=== PATIENT | female | born 1985 | race Caucasian/White ===

== ENCOUNTER 2018-01-10 15:42 | Inpatient (IN) | payer OTHER ==
[2018-01-10] MEDS ORDERED: CARBOPROST 250 MCG INJ IM (16:30)
[2018-01-10] MEDS ORDERED: OXYTOCIN 30 UNITS/LR 500 ML IV ×2 (16:30)
[2018-01-10] MEDS ORDERED: MISOPROSTOL 200 MCG TAB PR (16:30)
[2018-01-10] MEDS ORDERED: METHYLERGONOVINE 0.2 MG INJ IM (16:30)
[2018-01-10] MEDS ORDERED: LIDOCAINE 1% (MPF) 30 ML INJ INJ (16:30)
[2018-01-10] MEDS ORDERED: BUTORPHANOL 2 MG INJ IV (16:30)
[2018-01-10] MEDS ORDERED: IBUPROFEN 600 MG TAB PO (16:30)
[2018-01-10] MEDS: LACTATED RINGER'S 1,000 ML IV ×2 (19:21→23:39)
[2018-01-10] MEDS: URSODIOL 300 MG CAP PO (21:12)
[2018-01-11 00:51] LABS: ADD MAN DIFF? NO
[2018-01-11 00:53] LABS: WHITE BLOOD COUNT 6.5 10^3/ul (4.8-10.8)
[2018-01-11 00:53] LABS: BASOPHILS % 0.3 % (0.0-2.0); EOSINOPHILS # 0.1 10^3/ul (0.0-0.5); EOSINOPHILS % 1.5 % (0.0-7.0); HEMATOCRIT 29.7 % (37.0-47.0); HEMOGLOBIN 9.7 g/dl (12.0-16.0); LYMPHOCYTES # 1.6 10^3/ul (0.8-2.9); LYMPHOCYTES % 23.9 % (15.0-51.0); MEAN CORPUSCULAR HEMOGLOBIN 26.2 pg (29.0-33.0); MEAN CORPUSCULAR HGB CONC 32.7 g/dl (32.0-37.0); MEAN CORPUSCULAR VOLUME 80.3 fl (82.0-101.0); MEAN PLATELET VOLUME 11.8 fl (7.4-10.4); MONOCYTE # 0.5 10^3/ul (0.3-0.9); MONOCYTES % 6.9 % (0.0-11.0); NEUTROPHIL # 4.4 10^3/ul (1.6-7.5); NEUTROPHILS % 67.1 % (39.0-77.0); PLATELET COUNT 189 10^3/UL (140-415); RED CELL DISTRIBUTION WIDTH 13.7 % (11.5-14.5)
[2018-01-11 01:21] LABS: INR 0.92; PROTIME 12.4 Sec (11.9-14.9)
[2018-01-11 01:22] LABS: PARTIAL THROMBOPLASTIN TIME 27.5 Sec (25.0-35.0)
[2018-01-11 01:41] LABS: HEPATITIS B SURFACE ANTIGEN NEGATIVE (NEGATIVE)
[2018-01-11] MEDS ORDERED: CEFAZOLIN 2 GM/50 ML (PMX) 50 ML IV (04:00)
[2018-01-11] MEDS ORDERED: CARBOPROST 250 MCG INJ IM ×2 (04:00→08:30)
[2018-01-11] MEDS ORDERED: MISOPROSTOL 200 MCG TAB PR ×2 (04:00→08:30)
[2018-01-11] MEDS ORDERED: METHYLERGONOVINE 0.2 MG INJ IM (04:00)
[2018-01-11] MEDS ORDERED: OXYTOCIN 30 UNITS/LR 500 ML IV ×2 (04:00→08:30)
[2018-01-11] MEDS: LACTATED RINGER'S 1,000 ML IV ×3 (06:20→18:28)
[2018-01-11] MEDS ORDERED: HYDROCODONE/APAP (5/325) TAB PO (08:30)
[2018-01-11] MEDS ORDERED: FENTAnyl 50 MCG/ML VIAL ×2 (08:59→09:48)
[2018-01-11] MEDS ORDERED: morphine SULFATE/PF (10 MG/10 ML) INJ (08:59)
[2018-01-11] MEDS: URSODIOL 300 MG CAP PO ×3 (09:00→21:30)
[2018-01-11] MEDS: CEFAZOLIN 1 GM/50 ML (PMX) 50 ML IV ×2 (09:00→17:53)
[2018-01-11] MEDS ORDERED: PHENYLephrine (100 MCG/ML) 5ML SYG (09:00)
[2018-01-11] MEDS ORDERED: BUPIVACAINE 0.75%/DEXT (SPINAL) 2 ML INJ (09:08)
[2018-01-11] MEDS ORDERED: ONDANSETRON 4 MG INJ (09:31)
[2018-01-11] MEDS ORDERED: DEXAMETHASONE 4 MG/ML 1 ML INJ (09:31)
[2018-01-11] MEDS: METHYLERGONOVINE 0.2 MG INJ IM (09:45)
[2018-01-11] MEDS ORDERED: MIDAZOLAM 1 MG/ML 2 ML INJ (09:45)
[2018-01-11] MEDS ORDERED: HYDROmorphONE 0.5 MG/0.5 ML SYG IV (10:30)
[2018-01-11] MEDS ORDERED: NALOXONE (0.4 MG/ML) INJ IV (10:30)
[2018-01-11] MEDS: KETOROLAC 30 MG INJ IV ×2 (11:17→17:53)
[2018-01-11] MEDS: OXYTOCIN 30 UNITS/LR 500 ML IV ×2 (11:27→11:40)
[2018-01-11] MEDS: HYDROmorphONE 0.5 MG/0.5 ML SYG IV ×2 (14:00→21:30)
[2018-01-11 22:55] LABS: RAPID PLASMA REAGIN NONREACTIVE (NR)
[2018-01-12] MEDS: KETOROLAC 30 MG INJ IV ×2 (00:44→07:47)
[2018-01-12] MEDS: CEFAZOLIN 1 GM/50 ML (PMX) 50 ML IV ×2 (00:44→07:46)
[2018-01-12] MEDS: DIPHENHYDRAMINE 50 MG INJ IV (00:54)
[2018-01-12] MEDS: LACTATED RINGER'S 1,000 ML IV ×3 (01:18→16:24)
[2018-01-12] MEDS: URSODIOL 300 MG CAP PO ×3 (09:13→22:03)
[2018-01-12] MEDS: HYDROCODONE/APAP (5/325) TAB PO ×2 (09:14→14:08)
[2018-01-12 11:23] LABS: ADD MAN DIFF? NO
[2018-01-12 11:25] LABS: BASOPHILS % 0.1 % (0.0-2.0); EOSINOPHILS # 0.1 10^3/ul (0.0-0.5); EOSINOPHILS % 0.5 % (0.0-7.0); HEMOGLOBIN 7.6 g/dl (12.0-16.0); LYMPHOCYTES # 1.2 10^3/ul (0.8-2.9); LYMPHOCYTES % 13.4 % (15.0-51.0); MEAN CORPUSCULAR HEMOGLOBIN 26.6 pg (29.0-33.0); MEAN CORPUSCULAR VOLUME 80.4 fl (82.0-101.0); MEAN PLATELET VOLUME 11.2 fl (7.4-10.4); MONOCYTE # 0.6 10^3/ul (0.3-0.9); MONOCYTES % 6.1 % (0.0-11.0); NEUTROPHIL # 7.3 10^3/ul (1.6-7.5); NEUTROPHILS % 79.1 % (39.0-77.0); PLATELET COUNT 152 10^3/UL (140-415); RED BLOOD COUNT 2.86 10^6/ul (4.20-5.40); RED CELL DISTRIBUTION WIDTH 13.6 % (11.5-14.5)
[2018-01-12 11:25] LABS: WHITE BLOOD COUNT 9.2 10^3/ul (4.8-10.8)
[2018-01-12] MEDS: IBUPROFEN 600 MG TAB PO (17:22)
[2018-01-12] MEDS: OXYCODONE/ACETAMINOPHEN (5/325) TAB PO (18:55)
[2018-01-12] MEDS: FERROUS SULFATE (EC) 325 MG TAB PO (22:02)
[2018-01-13] MEDS: LACTATED RINGER'S 1,000 ML IV ×3 (00:24→14:01)
[2018-01-13] MEDS: OXYCODONE/ACETAMINOPHEN (5/325) TAB PO ×4 (00:33→18:35)
[2018-01-13] MEDS: IBUPROFEN 600 MG TAB PO ×4 (00:33→17:39)
[2018-01-13] MEDS: FERROUS SULFATE (EC) 325 MG TAB PO ×2 (08:59→21:42)
[2018-01-13] MEDS: INFLUENZA VIRUS VACCINE 0.5 ML (DISPENSING) IM* (09:00)
[2018-01-13] MEDS: URSODIOL 300 MG CAP PO ×3 (09:00→21:42)
[2018-01-13] MEDS: KETOROLAC 30 MG INJ IM (20:17)
[2018-01-14] MEDS: OXYCODONE/ACETAMINOPHEN (5/325) TAB PO ×3 (00:02→11:41)
[2018-01-14] MEDS: LACTATED RINGER'S 1,000 ML IV (00:24)
[2018-01-14] MEDS: IBUPROFEN 600 MG TAB PO ×3 (05:44→11:42)
[2018-01-14] MEDS: URSODIOL 300 MG CAP PO ×2 (09:01→13:36)
[2018-01-14] MEDS: FERROUS SULFATE (EC) 325 MG TAB PO (09:01)
[2018-01-14] MEDS ORDERED: IBUPROFEN 600 MG TAB PO (12:00)
== END 2018-01-14 14:10 | disposition home or self-care (01) | DRG 765 ==
LOC: L-D 15:42 → PP1 01-11 13:25
PROVIDERS: Obstetrics & Gynecology
PROC: 10D00Z1 Extraction of Products of Conception, Low, Open Approach (ICD-10-PCS; principal; 2018-01-11)
DX: O32.1XX0 Maternal care for breech presentation, not applicable or unspecified (principal); K83.1 Obstruction of bile duct; O26.62 Liver and biliary tract disorders in childbirth; Z37.0 Single live birth; Z3A.37 37 weeks gestation of pregnancy; O90.81 Anemia of the puerperium
CPT/HCPCS: 76815; 76816; 85025; 85610; 85730; 86592; 86850; 86900; 86901; 87340; 99464